=== PATIENT | male | born 1965 | race Hispanic/Latino ===

== ENCOUNTER 2024-07-12 07:20 | Day surgery (SDC) | payer BC, SELFPAY ==
--- NOTE | 2024-07-09 10:01 | RAD REPORT ---
Procedure: Chest Pa And Lat (2 Views) HISTORY: Preop. Hypertension COMPARISON: 2017 FINDINGS: The lungs appear clear of acute infiltrate. No significant pleural effusion noted. The heart is normal size. IMPRESSION: No acute abnormality is displayed.
[2024-07-12] MEDS: Ringers Lactate 1,000 ML IV ONE (07:50)
[2024-07-12] MEDS ORDERED: propofoL 200 MG/20 ML VIAL IV ONE ×2 (08:21)
[2024-07-12] MEDS ORDERED: LIDOCAINE 1% MPF 5 ML VIAL ONE (08:21)
[2024-07-12] MEDS ORDERED: EPHEDRINE SULF 50 MG/ML VIAL ONE (08:40)
[2024-07-12 09:50] VITALS: BP 102/68
[2024-07-12 09:51] VITALS: TEMP 98.1; O2SAT 98
--- NOTE | 2024-07-13 12:28 | EKG ---
Test Date: 2024-07-09 Test Time: 10:38:45 Fireman: ADALBERTO MEASUREMENT RESULTS: Intervals: Rate: 55 WI: 180 QRSD: 94 QT: 412 QTc: 394 [place]: P: 60 WI: 180 QRS: 47 T: 52 INTERPRETIVE STATEMENTS: Sinus bradycardia Otherwise normal ECG Compared to ECG 04/14/2017 08:01:42 Myocardial infarct finding no longer present Electronically Signed On 07-13-24 12:20:22 [employer]IST by Mike Daugherty
== END 2024-07-12 09:37 | disposition home or self-care (01) ==
LOC: OR 07:20
PROVIDERS: ATTEND Surgery
PROC: 0DBN8ZX Excision of Sigmoid Colon, Via Natural or Artificial Opening Endoscopic, Diagnostic (ICD-10-PCS; principal; 2024-07-12 08:30)
DX: Z12.11 Encounter for screening for malignant neoplasm of colon (principal); D12.5 Benign neoplasm of sigmoid colon; N40.0 Benign prostatic hyperplasia without lower urinary tract symptoms; K57.30 Diverticulosis of large intestine without perforation or abscess without bleeding; Z85.038 Personal history of other malignant neoplasm of large intestine
CPT/HCPCS: 93005; 88305; 71046; 45388; J2704 ×2; J2003; J7120